=== PATIENT | female | born 1975 | race Caucasian/White ===

== ENCOUNTER → 2018-02-06 | Outpatient (CLI) | payer BC | LOC: CIMAGING 15:09 | DX: M79.89 Other specified soft tissue disorders (principal); Z86.718 Personal history of other venous thrombosis and embolism; Z86.711 Personal history of pulmonary embolism | CPT/HCPCS: 93971-PO ==

== ENCOUNTER 2018-03-09 16:17 | Emergency (ER) | payer OTHER ==
[2018-03-09 17:36] LABS: INR 7.04 (0.83-1.16); PROTIME(PATIENT) 58.1 SEC (12.0-15.0)
--- NOTE | 2018-03-09 17:57 | EDPHY ---
H & P Time Seen by Provider: 03/09/18 16:20 HPI/ROS: CHIEF COMPLAINT: Elevated INR HISTORY OF PRESENT ILLNESS: Patient states that she had her INR checked at her primary care physician's office today and it was greater than 8. This was done by fingerstick INR check. She was sent in to the emergency department for further evaluation. She also says that she noticed over the last day or to a lump on her right proximal thigh posteriorly. She denies any trauma. She denies chest pain or shortness of breath. She has had no nausea or vomiting. She has had no new medications. REVIEW OF SYSTEMS: Constitutional: No fever, no chills. Eyes: No discharge. ENT: No sore throat. Cardiovascular: No chest pain, no palpitations. Respiratory: No cough, no shortness of breath. Gastrointestinal: No abdominal pain, no vomiting. Genitourinary: No dysuria. Musculoskeletal: No back pain. Skin: No rashes. Neurological: No headache. General Appearance: Alert, no distress. Morbidly obese. Eyes: Pupils equal and round no pallor or injection. ENT, Mouth: Mucous membranes moist. Respiratory: There are no retractions, lungs are clear to auscultation. Cardiovascular: Regular rate and rhythm. Gastrointestinal: Abdomen is soft and nontender, no masses, bowel sounds normal. Neurological: [ ] Skin: Warm and dry, no rashes. Musculoskeletal: Neck is supple nontender. Extremities are symmetrical, full range of motion. Discrete mass felt in the lower buttock upper thigh region posteriorly on the right side, it is mobile and rounded in shape. No overlying erythema or skin changes. Some tenderness but no fluctuance. Consistent with lipoma. Psychiatric: Patient is oriented X 3, there is no agitation. Medical/surgical history: Pre diabetes, hypertension, depression, PE and DVT. Bariatric surgery June 2017. Social history: Former smoker, denies ETOH or drugs. Smoking Status: Former smoker Constitutional: Initial Vital Signs Temperature (C) 36.8 C 03/09/18 16:26 Heart Rate 48 L 03/09/18 16:26 Respiratory Rate 16 03/09/18 16:26 Blood Pressure 125/66 H 03/09/18 16:26 O2 Sat (%) 96 03/09/18 16:26 O2 Delivery Mode Room Air Allergies/Adverse Reactions: liquibid Allergy (Uncoded 03/09/18 16:21) Home Medications: Medication Instructions Recorded CYCLOBENZAPRINE HCL [Flexeril] 5 mg PO TID PRN 09/05/14 Escitalopram Oxalate [Lexapro] 20 mg PO HS 09/05/14 Propranolol Sr [Inderal LA 80mg 240 mg PO HS 09/05/14 (*)] Warfarin Sodium [Coumadin 5MG (*)] 10 mg PO DAILY16 #30 tab 09/13/14 Metformin HCl 03/09/18 Medical Decision Making ED Course/Re-evaluation: INR returns elevated at 7. Discussed with patient. Differential Diagnosis: Differential diagnosis includes medication overuse, supratherapeutic INR, DVT, abscess, lipoma. After evaluation patient's INR at 7 without evidence of bleeding. No indications for vitamin K administration as patient relatively young without significant comorbidities to complicate reversal of INR with cessation of warfarin. Told patient that she should hold warfarin for at least 3 days and get her INR rechecked before initiating warfarin. She will follow up with her primary care physician who does her INR checks. Stable for discharge. - Data Points Laboratory Results: 03/09/18 17:10 PT 58.1 SEC H SEC (12.0-15.0) INR 7.04 H* (0.83-1.16) Departure - Departure Disposition: Home, Routine, Self-Care Clinical Impression: Supratherapeutic INR Condition: Good Instructions: Elevated INR (ED) Additional Instructions: Stop your warfarin now. Do not take it tonight. Call your primary care doctor in the next 1-2 days for timing for follow-up INR check but likely Friday or . For that a lipoma that is causing the pain on your bottom try ice or heat. If this does not improve follow up with your primary care physician or a general surgeon. Referrals: [facility] [Other] - As per Instructions
[2018-03-09 18:10] VITALS: BP 133/62
== END 2018-03-09 18:04 | disposition home or self-care (01) ==
LOC: CED 16:17
DX: R79.1 Abnormal coagulation profile (principal); Z79.01 Long term (current) use of anticoagulants; Z87.891 Personal history of nicotine dependence
CPT/HCPCS: 85610-PO